=== PATIENT | male | born 1995 | race Hispanic/Latino ===

== ENCOUNTER 2016-04-23 01:10 | Emergency (ER) | payer OTHER ==
[~2016-04-23] VITALS: Ht 177.8 cm; Wt 61.0 kg
[~2016-04-23 01:10] MED LIST: GFCD10B GT; PRED20TA PO
[2016-04-23] MEDS ORDERED: HYDROmorphone 1 MG/ML (DILAUDID) SYRINGE IM ONE (01:30)
[2016-04-23] MEDS ORDERED: PROMETHAZINE 25 MG/ML (PHENERGAN) 1 ML VIAL IM ONE (01:30)
[2016-04-23] MEDS ORDERED: BACITRACIN OINTMENT 0.9 GM PACKET TOP ONE (02:10)
[2016-04-23 02:19] VITALS: BP 119/77
== END 2016-04-23 02:20 | disposition home or self-care (01) ==
LOC: ED 01:12
DX: S31.21XA Laceration without foreign body of penis, initial encounter (principal); W45.8XXA Other foreign body or object entering through skin, initial encounter; Y93.89 Activity, other specified
CPT/HCPCS: 96372; 99282; J1170; J2550